=== PATIENT | female | born 1955 | race Caucasian/White ===

== ENCOUNTER 2019-01-04 11:57 | Inpatient (IN) | payer MEDICAID ==
[~2019-01-04] VITALS: Ht 170.2 cm; Wt 104.1 kg
[~2019-01-04 11:57] MED LIST: AMLO5TAB88 PO; AZIT500T5 PO; BENZ100C86 PO; NICO-681 TD; PRED15SO23 PO; PULM50 HHN; THEOL PO
[2019-01-04 12:40] LABS: BASOPHILS % 0.9 % (0.0-2.0); EOSINOPHILS % 3.2 % (0.0-5.0); HEMATOCRIT. 43.2 % (36.0-48.0); HEMOGLOBIN. 14.3 g/dL (12.0-16.0); MEAN CORPUSCULAR HEMOGLOBIN 29.4 pg (28.0-32.0); MEAN CORPUSCULAR VOLUME 89.2 fL (81.0-99.0); MONOCYTES % 6.7 % (2.0-8.0); NEUTROPHILS % 77.2 % (40.0-76.0); PLATELET 369 x1000/uL (130-400); RED BLOOD CELL COUNT 4.84 mill/uL (4.2-5.4); RED CELL DISTRIBUTION WIDTH 14.3 % (11.6-14.6)
[2019-01-04 12:47] LABS: CHLORIDE 99 mEq/L (98-107)
[2019-01-04] MEDS ORDERED: IPRATROPIUM BROMIDE (0.02%) 0.5MG/2.5ML NEB HHN STA (12:47)
[2019-01-04] MEDS ORDERED: METHYLPREDNISOLONE SOD SUCC 125 MG/2 ML VIAL IV STA (12:47)
[2019-01-04 12:49] LABS: PROTHROMBIN TIME 9.9 sec (9.1-11.1)
[2019-01-04] MEDS ORDERED: SODIUM CHLORIDE 0.9% 1,000 ML IV ONE (13:25)
[2019-01-04] MEDS: ALBUTEROL (0.083%) 2.5MG/3ML NEB HHN SCH ×3 (13:30→14:00)
[2019-01-04] MEDS ORDERED: ENOXAPARIN 40MG/0.4ML SYR SUBCUT SCH (16:15)
[2019-01-04] MEDS ORDERED: ONDANSETRON HCL 4MG/2ML INJ IV PRN (16:15)
[2019-01-04] MEDS ORDERED: MORPHINE SULFATE 4 MG/ML CPJ (NOT FOR IM USE) IV NR (17:00)
[2019-01-04 17:33] LABS: PHOSPHORUS 3.8 mg/dL (2.5-4.9)
[2019-01-04 17:50] LABS: CLARITY URINE CLEAR (CLEAR); COLOR URINE YELLOW (YELLOW); KETONES URINE NEGATIVE (NEGATIVE); LEUKOCYTE ESTERASE URINE TRACE (NEGATIVE); NITRITE URINE POSITIVE (NEGATIVE); OCCULT BLOOD URINE TRACE (NEGATIVE); PH URINE 5.5 (4.5-8.0); PROTEIN URINE NEGATIVE (NEGATIVE); SPECIFIC GRAVITY URINE 1.006 (1.005-1.030); UROBILINOGEN URINE 0.2 E.U./dL (0.2-1.0)
[2019-01-04 20:00] VITALS: BP 151/82
[2019-01-04 21:00] VITALS: BP 151/82
[2019-01-04] MEDS ORDERED: IPRATROPIUM/ALBUTEROL 0.5-3(2.5)MG/3ML NEB HHN PRN (21:19)
[2019-01-04] MEDS ORDERED: HYDROCODONE/ACETAMINOPHEN 5/325MG TABLET PO PRN (21:20)
[2019-01-04] MEDS ORDERED: ACETAMINOPHEN 325MG TABLET PO PRN (21:20)
[2019-01-04] MEDS ORDERED: DIPHENHYDRAMINE 50MG/ML VIAL IV PRN (21:21)
[2019-01-04] MEDS ORDERED: DOCUSATE SODIUM 100MG CAPSULE PO PRN (21:21)
[2019-01-04] MEDS ORDERED: MAGNESIUM/ALUMINUM HYDROXIDE/SIMETHICONE 30ML UDC PO PRN (21:21)
[2019-01-04] MEDS ORDERED: GUAIFENESIN 200MG/10ML SUGAR FREE UDC PO PRN (21:22)
[2019-01-04] MEDS: GUAIFENESIN 600MG ER TABLET PO SCH (23:44)
[2019-01-04] MEDS: METHYLPREDNISOLONE SOD SUCC 40 MG/ML VIAL IV SCH (23:44)
[2019-01-04] MEDS: NICOTINE 14MG PATCH TD SCH (23:45)
[2019-01-05] VITALS: BP 149/69
[2019-01-05] MEDS ORDERED: IPRATROPIUM/ALBUTEROL 0.5-3(2.5)MG/3ML NEB HHN SCH
[2019-01-05 01:24] LABS: CREATINE KINASE 59 IU/L (26-192)
[2019-01-05 01:25] LABS: CREATINE KINASE MB FRACTION < 1.0 ng/mL (0.5-3.6)
[2019-01-05 04:00] VITALS: BP 163/82
[2019-01-05 06:48] LABS: BASOPHILS % 0.8 % (0.0-2.0); EOSINOPHILS % 0.1 % (0.0-5.0); HEMATOCRIT. 40.3 % (36.0-48.0); HEMOGLOBIN. 13.4 g/dL (12.0-16.0); LYMPHOCYTES % 7.1 % (20.0-50.0); MEAN CORPUSCULAR HEMOGLOBIN 29.6 pg (28.0-32.0); MEAN CORPUSCULAR VOLUME 88.7 fL (81.0-99.0); MEAN PLATELET VOLUME 7.3 fl (7.4-10.4); MONOCYTES % 4.7 % (2.0-8.0); NEUTROPHILS % 87.3 % (40.0-76.0); PLATELET 356 x1000/uL (130-400); RED BLOOD CELL COUNT 4.55 mill/uL (4.2-5.4); RED CELL DISTRIBUTION WIDTH 14.5 % (11.6-14.6)
[2019-01-05] MEDS: METHYLPREDNISOLONE SOD SUCC 40 MG/ML VIAL IV SCH ×3 (06:50→20:58)
[2019-01-05 07:26] LABS: CHLORIDE 107 mEq/L (98-107)
[2019-01-05] MEDS ORDERED: DEXTROSE 50% WATER 50ML SYRINGE IV PRN (07:30)
[2019-01-05 07:48] LABS: LDL CHOLESTEROL 133 mg/dL (5-100)
[2019-01-05 07:49] LABS: CREATINE KINASE 54 IU/L (26-192); HDL CHOLESTEROL 79 mg/dL (40-59)
[2019-01-05] MEDS: INSULIN LISPRO 100 UNITS/ML SUBCUT SCH ×4 (07:50→20:50)
[2019-01-05] MEDS: BLOOD SUGAR DIAGNOSTIC STRIP TEST SCH ×4 (07:51→20:50)
[2019-01-05 07:53] LABS: CREATINE KINASE MB FRACTION 1.1 ng/mL (0.5-3.6)
[2019-01-05 08:00] VITALS: BP_SYST 150; BP_SYST 182; BP_DIAS 80; BP_DIAS 85
[2019-01-05] MEDS: GUAIFENESIN 600MG ER TABLET PO SCH ×2 (08:06→20:49)
[2019-01-05] MEDS: CLONIDINE 0.1MG TABLET PO PRN ×2 (08:07→23:27)
[2019-01-05] MEDS: NICOTINE 14MG PATCH TD SCH (08:08)
[2019-01-05] MEDS: ENOXAPARIN 30MG/0.3ML SYR SUBCUT SCH ×2 (08:09→20:49)
[2019-01-05 12:00] VITALS: BP 150/85
[2019-01-05 16:00] VITALS: BP 146/68
[2019-01-05 20:00] VITALS: BP 179/86
[2019-01-05] MEDS: AMLODIPINE 5MG TABLET PO SCH (20:49)
[2019-01-05] MEDS ORDERED: ATORVASTATIN CALCIUM 20MG TABLET PO SCH (21:00)
[2019-01-05] MEDS: IPRATROPIUM/ALBUTEROL 0.5-3(2.5)MG/3ML NEB HHN SCH (21:25)
[2019-01-06] VITALS (7 sets, daily range): BP systolic 149–182; BP diastolic 73–87
[2019-01-06] MEDS: IPRATROPIUM/ALBUTEROL 0.5-3(2.5)MG/3ML NEB HHN SCH ×3 (00:38→12:53)
[2019-01-06] MEDS: METHYLPREDNISOLONE SOD SUCC 40 MG/ML VIAL IV SCH ×2 (06:24→13:17)
[2019-01-06] MEDS: BLOOD SUGAR DIAGNOSTIC STRIP TEST SCH ×2 (06:24→13:09)
[2019-01-06] MEDS: CLONIDINE 0.1MG TABLET PO PRN (06:24)
[2019-01-06] MEDS: INSULIN LISPRO 100 UNITS/ML SUBCUT SCH ×2 (07:50→13:21)
[2019-01-06] MEDS: NICOTINE 14MG PATCH TD SCH (08:48)
[2019-01-06] MEDS: ENOXAPARIN 30MG/0.3ML SYR SUBCUT SCH (08:48)
[2019-01-06] MEDS: AMLODIPINE 5MG TABLET PO SCH (08:48)
[2019-01-06] MEDS: GUAIFENESIN 600MG ER TABLET PO SCH (08:48)
== END 2019-01-06 15:29 | disposition home or self-care (01) | DRG 140 ==
LOC: ER 11:57 → 6WST 14:42 → ENRESERV 18:26
PROVIDERS: ADMIT Internal Medicine; ATTEND Internal Medicine
DX: J44.1 Chronic obstructive pulmonary disease with (acute) exacerbation (principal); J96.00 Acute respiratory failure, unspecified whether with hypoxia or hypercapnia; I25.10 Atherosclerotic heart disease of native coronary artery without angina pectoris; J06.9 Acute upper respiratory infection, unspecified; I50.32 Chronic diastolic (congestive) heart failure; I11.0 Hypertensive heart disease with heart failure; F17.210 Nicotine dependence, cigarettes, uncomplicated; E87.2 Acidosis; R73.9 Hyperglycemia, unspecified; M16.11 Unilateral primary osteoarthritis, right hip; R74.0 Nonspecific elevation of levels of transaminase and lactic acid dehydrogenase [LDH]; E78.5 Hyperlipidemia, unspecified; E66.9 Obesity, unspecified; Z71.3 Dietary counseling and surveillance; I25.2 Old myocardial infarction; Z95.5 Presence of coronary angioplasty implant and graft; Z90.49 Acquired absence of other specified parts of digestive tract; Z68.35 Body mass index [BMI] 35.0-35.9, adult; Z79.899 Other long term (current) drug therapy; Z71.6 Tobacco abuse counseling
CPT/HCPCS: 36415; 71045; 80061; 82550; 82553; 82962; 83605; 83735; 83880; 84100; 84443; 84484; 87804; 93005; 93970; 94640; 97162; 97166; 99285; J1200; J1650; J1815; J2270; J2920; J2930; J7030; J7611; J7620

== ENCOUNTER 2019-01-16 09:16 | Emergency (ER) | payer MEDICAID ==
[~2019-01-16] VITALS: Ht 162.6 cm; Wt 97.0 kg
[~2019-01-16 09:16] MED LIST changes: -AZIT500T5 PO; -BENZ100C86 PO; -NICO-681 TD
[2019-01-16] MEDS ORDERED: MORPHINE SULFATE 4 MG/ML CPJ (NOT FOR IM USE) IV STA (10:37)
[2019-01-16] MEDS ORDERED: ONDANSETRON HCL 4MG/2ML INJ IV STA (10:37)
[2019-01-16 10:57] LABS: BASOPHILS % 0.8 % (0.0-2.0); EOSINOPHILS % 4.6 % (0.0-5.0); HEMATOCRIT. 41.8 % (36.0-48.0); HEMOGLOBIN. 13.9 g/dL (12.0-16.0); LYMPHOCYTES % 10.7 % (20.0-50.0); MEAN CORPUSCULAR HEMOGLOBIN 29.6 pg (28.0-32.0); MEAN CORPUSCULAR VOLUME 89.4 fL (81.0-99.0); MEAN PLATELET VOLUME 7.3 fl (7.4-10.4); MONOCYTES % 6.5 % (2.0-8.0); NEUTROPHILS % 77.4 % (40.0-76.0); PLATELET 362 x1000/uL (130-400); RED BLOOD CELL COUNT 4.67 mill/uL (4.2-5.4); RED CELL DISTRIBUTION WIDTH 14.7 % (11.6-14.6)
[2019-01-16 11:00] LABS: INR 0.9; PROTHROMBIN TIME 9.5 sec (9.1-11.1)
[2019-01-16 11:02] LABS: CHLORIDE 104 mEq/L (98-107)
[2019-01-16] MEDS ORDERED: HYDROCODONE/ACETAMINOPHEN 5/325MG TABLET PO ONE (12:00)
[2019-01-16 14:00] VITALS: BP 145/56
== END 2019-01-16 14:15 | disposition home or self-care (01) ==
LOC: ER 09:16 → EDBEDREQ 11:07 → CANBEDREQ 12:37 → ER 14:15
DX: S70.01XA Contusion of right hip, initial encounter (principal); I10 Essential (primary) hypertension; I25.2 Old myocardial infarction; J44.9 Chronic obstructive pulmonary disease, unspecified; M19.90 Unspecified osteoarthritis, unspecified site; I25.10 Atherosclerotic heart disease of native coronary artery without angina pectoris; Z90.49 Acquired absence of other specified parts of digestive tract; Z98.890 Other specified postprocedural states; Z79.899 Other long term (current) drug therapy; W01.0XXA Fall on same level from slipping, tripping and stumbling without subsequent striking against object, initial encounter; Y93.89 Activity, other specified; Y92.89 Other specified places as the place of occurrence of the external cause; Y99.8 Other external cause status
CPT/HCPCS: 36415; 71045; 72100; 73502; 80053; 85025; 85610; 93005; 96374; 96375; 99284; J2270; J2405

== ENCOUNTER 2019-06-24 18:23 | Emergency (ER) | payer BC, OTHER ==
[~2019-06-24] VITALS: Ht 172.7 cm; Wt 100.0 kg
[2019-06-24] MEDS ORDERED: KETOROLAC 60MG/2ML VIAL IM ONE (20:00)
[2019-06-24] MEDS ORDERED: HYDROCODONE/ACETAMINOPHEN 5/325MG TABLET PO ONE (20:00)
[2019-06-24] MEDS ORDERED: CLONIDINE 0.2MG TABLET PO ONE (22:45)
[2019-06-24 23:41] LABS: BASOPHILS % 1.5 % (0.0-2.0); EOSINOPHILS % 4.5 % (0.0-5.0); HEMATOCRIT. 41.9 % (36.0-48.0); HEMOGLOBIN. 14.3 g/dL (12.0-16.0); LYMPHOCYTES % 18.5 % (20.0-50.0); MEAN CORPUSCULAR HEMOGLOBIN 29.8 pg (28.0-32.0); MEAN CORPUSCULAR VOLUME 87.4 fL (81.0-99.0); MEAN PLATELET VOLUME 7.3 fl (7.4-10.4); MONOCYTES % 6.1 % (2.0-8.0); NEUTROPHILS % 69.4 % (40.0-76.0); PLATELET 299 x1000/uL (130-400); RED CELL DISTRIBUTION WIDTH 14.3 % (11.6-14.6)
[2019-06-24 23:47] LABS: CHLORIDE 107 mEq/L (98-107)
[2019-06-25] MEDS ORDERED: LABETALOL 5MG/ML SYR 20 MG/4 ML SYRINGE IV SCH (01:40)
[2019-06-25] MEDS ORDERED: ONDANSETRON HCL 4MG/2ML INJ IV STA (02:56)
[2019-06-25 08:07] VITALS: BP 132/60
== END 2019-06-25 08:25 | disposition short-term general hospital (02) ==
LOC: ER 18:23
DX: M79.604 Pain in right leg (principal); G89.29 Other chronic pain; I10 Essential (primary) hypertension; M19.90 Unspecified osteoarthritis, unspecified site; R41.0 Disorientation, unspecified; I25.10 Atherosclerotic heart disease of native coronary artery without angina pectoris; F32.9 Major depressive disorder, single episode, unspecified; J44.9 Chronic obstructive pulmonary disease, unspecified; I25.2 Old myocardial infarction; Z90.49 Acquired absence of other specified parts of digestive tract
CPT/HCPCS: 36415; 70450; 71045; 80053; 83880; 84484; 85025; 93005; 96372; 96374; 96375; 99285; J1885; J2405; J3490

== ENCOUNTER 2020-12-03 12:15 | Inpatient (IN) | payer OTHER, MEDICAID ==
[~2020-12-03] VITALS: Ht 167.6 cm; Wt 110.2 kg
[2020-12-03] MEDS ORDERED: ONDANSETRON HCL 4MG/2ML INJ IV STA (12:41)
[2020-12-03] MEDS ORDERED: SODIUM CHLORIDE 0.9% 1,000 ML IV ONE (12:45)
[2020-12-03 13:14] LABS: BASOPHILS % 1.4 % (0.0-2.0); EOSINOPHILS % 1.5 % (0.0-5.0); HEMATOCRIT. 41.4 % (36.0-48.0); HEMOGLOBIN. 14.1 g/dL (12.0-16.0); LYMPHOCYTES % 9.8 % (20.0-50.0); MEAN CORPUSCULAR HEMOGLOBIN 29.6 pg (28.0-32.0); MEAN CORPUSCULAR VOLUME 86.9 fL (81.0-99.0); MEAN PLATELET VOLUME 7.5 fl (7.4-10.4); MONOCYTES % 5.4 % (2.0-8.0); NEUTROPHILS % 81.9 % (40.0-76.0); PLATELET 436 x1000/uL (130-400); RED BLOOD CELL COUNT 4.77 mill/uL (4.2-5.4); RED CELL DISTRIBUTION WIDTH 14.7 % (11.6-14.6)
[2020-12-03 13:22] LABS: CHLORIDE 90 mEq/L (98-107)
[2020-12-03 13:28] LABS: ETHANOL BLOOD < 10 mg/dL
[2020-12-03 13:32] LABS: CLARITY URINE CLOUDY (CLEAR); COLOR URINE YELLOW (YELLOW); KETONES URINE NEGATIVE (NEGATIVE); LEUKOCYTE ESTERASE URINE 2+ (NEGATIVE); NITRITE URINE POSITIVE (NEGATIVE); OCCULT BLOOD URINE NEGATIVE (NEGATIVE); PH URINE 5.5 (4.5-8.0); PROTEIN URINE NEGATIVE (NEGATIVE); SPECIFIC GRAVITY URINE 1.009 (1.005-1.030); UROBILINOGEN URINE 0.2 E.U./dL (0.2-1.0)
[2020-12-03] MEDS ORDERED: FUROSEMIDE 100MG/10ML VIAL IV STA (13:54)
[2020-12-03 13:56] LABS: *AMPHETAMINES SCREEN URINE NEGATIVE (NEGATIVE); *BARBITURATES SCREEN URINE NEGATIVE (NEGATIVE); *BENZODIAZEPINES SCREEN URINE NEGATIVE (NEGATIVE); *COCAINE SCREEN URINE NEGATIVE (NEGATIVE)
[2020-12-03 13:57] LABS: CANNABINOID URINE SCREEN NEGATIVE (NEGATIVE); METHADONE URINE SCREEN NEGATIVE (NEGATIVE); OPIATES URINE SCREEN NEGATIVE (NEGATIVE); PHENCYCLIDINE URINE SCREEN NEGATIVE (NEGATIVE)
[2020-12-03] MEDS ORDERED: ALBUTEROL (0.083%) 2.5MG/3ML NEB HHN ONE (14:00)
[2020-12-03] MEDS ORDERED: DEXTROSE 50% WATER 50ML SYRINGE IV ONE (14:00)
[2020-12-03] MEDS ORDERED: CEFTRIAXONE 1 G PREMIX 50 ML IV ONE (14:00)
[2020-12-03] MEDS ORDERED: SODIUM POLYSTYRENE SULFONATE 15 G/60 ML BOT PO ONE (14:00)
[2020-12-03] MEDS ORDERED: CALCIUM CHLORIDE 1GM/10ML SYR IV ONE (14:00)
[2020-12-03] MEDS ORDERED: SODIUM BICARBONATE 8.4% 1 MEQ/ML 50ML SYR IV ONE (14:00)
[2020-12-03] MEDS ORDERED: INSULIN REGULAR (HUMULIN R) 300UNITS/3ML VIAL IV ONE (14:00)
[2020-12-03] MEDS ORDERED: SODIUM CHLORIDE 0.9% 1000ML BAG (SEPSIS BOLUS) IV ONE (14:00)
[2020-12-03 14:40] LABS: PROTHROMBIN TIME 10.9 sec (9.6-11.0)
[2020-12-03] MEDS ORDERED: ONDANSETRON HCL 4MG/2ML INJ IV PRN (16:15)
[2020-12-03] MEDS: SODIUM CHLORIDE 0.9% 1,000 ML IV SCH (17:38)
[2020-12-03] MEDS: ENOXAPARIN 40MG/0.4ML SYR SUBCUT SCH (17:38)
[2020-12-04] MEDS: SODIUM CHLORIDE 0.9% 1,000 ML IV SCH ×2 (05:30→17:47)
[2020-12-04 08:00] VITALS: BP 101/53
[2020-12-04 08:33] LABS: EOSINOPHILS % 0.9 % (0.0-5.0); HEMATOCRIT. 37.6 % (36.0-48.0); HEMOGLOBIN. 12.5 g/dL (12.0-16.0); MEAN CORPUSCULAR HEMOGLOBIN 29.6 pg (28.0-32.0); MEAN CORPUSCULAR VOLUME 88.9 fL (81.0-99.0); MEAN PLATELET VOLUME 7.1 fl (7.4-10.4); MONOCYTES % 7.2 % (2.0-8.0); NEUTROPHILS % 82.9 % (40.0-76.0); PLATELET 286 x1000/uL (130-400); RED BLOOD CELL COUNT 4.22 mill/uL (4.2-5.4); RED CELL DISTRIBUTION WIDTH 14.7 % (11.6-14.6)
[2020-12-04 09:00] LABS: CHLORIDE 102 mEq/L (98-107)
[2020-12-04] MEDS: LACTOBACILLUS GG CAPSULE PO SCH (09:11)
[2020-12-04] MEDS: ENOXAPARIN 40MG/0.4ML SYR SUBCUT SCH (09:12)
[2020-12-04 09:15] LABS: HDL CHOLESTEROL 55 mg/dL (40-59); LDL CHOLESTEROL 102 mg/dL (5-100)
[2020-12-04 12:00] VITALS: BP 102/56
[2020-12-04] MEDS ORDERED: CEFTRIAXONE 1 G PREMIX 50 ML IV SCH (12:00)
[2020-12-04] MEDS: CEFTRIAXONE 1,000 MG in DEXTROSE 5% WATER 50 ML IV SCH (13:08)
[2020-12-04] MEDS ORDERED: LOPERAMIDE HCL 2MG CAPSULE PO NR (15:00)
[2020-12-04 16:00] VITALS: BP 135/63
[2020-12-04] MEDS ORDERED: LOPERAMIDE HCL 2MG CAPSULE PO PRN (18:00)
[2020-12-04 20:00] VITALS: BP 125/63
[2020-12-05 00:01] VITALS: BP 129/65
[2020-12-05 04:00] VITALS: BP 140/73
[2020-12-05] MEDS: SODIUM CHLORIDE 0.9% 1,000 ML IV SCH ×2 (07:14→22:06)
[2020-12-05 07:42] LABS: HEMATOCRIT. 33.6 % (36.0-48.0); HEMOGLOBIN. 11.4 g/dL (12.0-16.0); MEAN CORPUSCULAR HEMOGLOBIN 29.8 pg (28.0-32.0); MEAN CORPUSCULAR VOLUME 88.2 fL (81.0-99.0); MEAN PLATELET VOLUME 6.9 fl (7.4-10.4); PLATELET 280 x1000/uL (130-400); RED BLOOD CELL COUNT 3.81 mill/uL (4.2-5.4); RED CELL DISTRIBUTION WIDTH 14.8 % (11.6-14.6)
[2020-12-05 07:54] LABS: CHLORIDE 104 mEq/L (98-107)
[2020-12-05 08:00] VITALS: BP 132/71
[2020-12-05] MEDS: LACTOBACILLUS GG CAPSULE PO SCH (10:28)
[2020-12-05] MEDS: ENOXAPARIN 40MG/0.4ML SYR SUBCUT SCH (10:29)
[2020-12-05] MEDS ORDERED: ATOR10TA69 MT (13:09)
[2020-12-05] MEDS ORDERED: BENZ-16 MT (13:09)
[2020-12-05] MEDS ORDERED: IMOD PO (13:09)
[2020-12-05] MEDS ORDERED: BENZONATATE 100MG CAPSULE PO PRN (13:15)
[2020-12-05] MEDS: ACETAMINOPHEN 325MG TABLET PO PRN (13:23)
[2020-12-05 14:00] VITALS: BP 151/63
[2020-12-05] MEDS: CEFTRIAXONE 1,000 MG in DEXTROSE 5% WATER 50 ML IV SCH (14:10)
[2020-12-05] MEDS: IPRATROPIUM/ALBUTEROL 0.5-3(2.5)MG/3ML NEB HHN SCH ×2 (15:20→22:17)
[2020-12-05 20:00] VITALS: BP 124/68
[2020-12-06] VITALS: BP 146/68
[2020-12-06] MEDS: IPRATROPIUM/ALBUTEROL 0.5-3(2.5)MG/3ML NEB HHN SCH ×5 (03:26→20:54)
[2020-12-06 04:00] VITALS: BP 150/70
[2020-12-06 08:00] VITALS: BP 157/77
[2020-12-06] MEDS: ASPIRIN 81MG EC TABLET PO SCH (08:42)
[2020-12-06] MEDS: LACTOBACILLUS GG CAPSULE PO SCH (08:42)
[2020-12-06] MEDS: ENOXAPARIN 30MG/0.3ML SYR SUBCUT SCH ×2 (08:42→16:39)
[2020-12-06] MEDS: SODIUM CHLORIDE 0.9% 1,000 ML IV SCH ×2 (08:51→20:00)
[2020-12-06] MEDS: AMLODIPINE 5MG TABLET PO SCH (08:51)
[2020-12-06 12:00] VITALS: BP 148/85
[2020-12-06] MEDS: ACETAMINOPHEN 325MG TABLET PO PRN (12:19)
[2020-12-06] MEDS: CEFTRIAXONE 1,000 MG in DEXTROSE 5% WATER 50 ML IV SCH (12:20)
[2020-12-06 16:00] VITALS: BP 146/77
[2020-12-06 20:00] VITALS: BP 169/100
[2020-12-06] MEDS: ATORVASTATIN CALCIUM 20MG TABLET PO SCH (20:14)
[2020-12-06 22:41] LABS: PLATELET ESTIMATE NORMAL
[2020-12-07] VITALS: BP 170/79
[2020-12-07] MEDS: IPRATROPIUM/ALBUTEROL 0.5-3(2.5)MG/3ML NEB HHN SCH (01:48)
[2020-12-07] MEDS: DIPHENHYDRAMINE 50MG/ML VIAL IV PRN (02:02)
[2020-12-07] MEDS: CLONIDINE 0.1MG TABLET PO PRN ×2 (02:02→12:34)
[2020-12-07 04:00] VITALS: BP 165/82
[2020-12-07 07:01] LABS: CHLORIDE 99 mEq/L (98-107)
[2020-12-07 07:18] LABS: HEMATOCRIT. 35.1 % (36.0-48.0); HEMOGLOBIN. 11.9 g/dL (12.0-16.0); MEAN CORPUSCULAR HEMOGLOBIN 30.1 pg (28.0-32.0); MEAN PLATELET VOLUME 7.6 fl (7.4-10.4); PLATELET 306 x1000/uL (130-400); RED BLOOD CELL COUNT 3.95 mill/uL (4.2-5.4); RED CELL DISTRIBUTION WIDTH 14.9 % (11.6-14.6)
[2020-12-07 08:00] VITALS: BP 155/84
[2020-12-07] MEDS: ENOXAPARIN 30MG/0.3ML SYR SUBCUT SCH ×2 (08:22→16:36)
[2020-12-07] MEDS: AMLODIPINE 5MG TABLET PO SCH (08:22)
[2020-12-07] MEDS: SODIUM CHLORIDE 0.9% 1,000 ML IV SCH ×2 (08:22→20:21)
[2020-12-07] MEDS: LACTOBACILLUS GG CAPSULE PO SCH (08:22)
[2020-12-07] MEDS: ACETAMINOPHEN 325MG TABLET PO PRN ×2 (08:22→18:20)
[2020-12-07] MEDS: ASPIRIN 81MG EC TABLET PO SCH (08:23)
[2020-12-07] MEDS: METOPROLOL TARTRATE 25MG TABLET PO SCH ×2 (08:23→20:21)
[2020-12-07 12:00] VITALS: BP 164/77
[2020-12-07] MEDS: CEFTRIAXONE 1,000 MG in DEXTROSE 5% WATER 50 ML IV SCH (12:29)
[2020-12-07 15:17] LABS: PLATELET ESTIMATE NORMAL
[2020-12-07 16:00] VITALS: BP 153/61
[2020-12-07] MEDS ORDERED: HYDROCODONE/ACETAMINOPHEN 5/325MG TABLET PO PRN (19:30)
[2020-12-07 20:00] VITALS: BP 133/64
[2020-12-07] MEDS: ATORVASTATIN CALCIUM 20MG TABLET PO SCH (20:21)
[2020-12-08] VITALS: BP 139/63
[2020-12-08 04:00] VITALS: BP 156/67
[2020-12-08 07:27] LABS: BASOPHILS % 1.1 % (0.0-2.0); EOSINOPHILS % 4.9 % (0.0-5.0); HEMATOCRIT. 32.2 % (36.0-48.0); HEMOGLOBIN. 10.9 g/dL (12.0-16.0); LYMPHOCYTES % 11.4 % (20.0-50.0); MEAN CORPUSCULAR HEMOGLOBIN 29.5 pg (28.0-32.0); MEAN CORPUSCULAR VOLUME 87.5 fL (81.0-99.0); MEAN PLATELET VOLUME 6.9 fl (7.4-10.4); MONOCYTES % 8.8 % (2.0-8.0); NEUTROPHILS % 73.8 % (40.0-76.0); PLATELET 339 x1000/uL (130-400); RED BLOOD CELL COUNT 3.68 mill/uL (4.2-5.4); RED CELL DISTRIBUTION WIDTH 14.5 % (11.6-14.6)
[2020-12-08 08:00] VITALS: BP 146/66
[2020-12-08 08:15] LABS: CHLORIDE 102 mEq/L (98-107)
[2020-12-08] MEDS: IPRATROPIUM/ALBUTEROL 0.5-3(2.5)MG/3ML NEB HHN SCH ×4 (08:52→21:19)
[2020-12-08] MEDS: ASPIRIN 81MG EC TABLET PO SCH (08:55)
[2020-12-08] MEDS: LACTOBACILLUS GG CAPSULE PO SCH (08:55)
[2020-12-08] MEDS: METOPROLOL TARTRATE 25MG TABLET PO SCH ×2 (08:55→21:05)
[2020-12-08] MEDS: ENOXAPARIN 30MG/0.3ML SYR SUBCUT SCH ×2 (08:55→18:16)
[2020-12-08] MEDS: SODIUM CHLORIDE 0.9% 1,000 ML IV SCH ×2 (08:56→21:06)
[2020-12-08] MEDS: AMLODIPINE 5MG TABLET PO SCH (09:35)
[2020-12-08 14:00] VITALS: BP 147/65
[2020-12-08 16:00] VITALS: BP 126/59
[2020-12-08 20:00] VITALS: BP 115/62
[2020-12-08] MEDS: ATORVASTATIN CALCIUM 20MG TABLET PO SCH (21:05)
[2020-12-09] VITALS: BP 122/80
[2020-12-09 08:00] VITALS: BP 154/67
[2020-12-09] MEDS: IPRATROPIUM/ALBUTEROL 0.5-3(2.5)MG/3ML NEB HHN SCH ×3 (08:11→21:19)
[2020-12-09 09:28] LABS: BASOPHILS % 1.3 % (0.0-2.0); EOSINOPHILS % 5.1 % (0.0-5.0); HEMATOCRIT. 34.3 % (36.0-48.0); HEMOGLOBIN. 11.5 g/dL (12.0-16.0); LYMPHOCYTES % 13.7 % (20.0-50.0); MEAN CORPUSCULAR HEMOGLOBIN 29.6 pg (28.0-32.0); MEAN CORPUSCULAR VOLUME 88.3 fL (81.0-99.0); MEAN PLATELET VOLUME 6.9 fl (7.4-10.4); MONOCYTES % 8.3 % (2.0-8.0); NEUTROPHILS % 71.6 % (40.0-76.0); PLATELET 376 x1000/uL (130-400); RED BLOOD CELL COUNT 3.88 mill/uL (4.2-5.4); RED CELL DISTRIBUTION WIDTH 14.7 % (11.6-14.6)
[2020-12-09] MEDS: METOPROLOL TARTRATE 25MG TABLET PO SCH ×2 (09:40→20:29)
[2020-12-09] MEDS: AMLODIPINE 5MG TABLET PO SCH (09:40)
[2020-12-09] MEDS: ASPIRIN 81MG EC TABLET PO SCH (09:40)
[2020-12-09] MEDS: LACTOBACILLUS GG CAPSULE PO SCH (09:41)
[2020-12-09] MEDS: ENOXAPARIN 30MG/0.3ML SYR SUBCUT SCH ×2 (09:41→16:24)
[2020-12-09] MEDS: SODIUM CHLORIDE 0.9% 1,000 ML IV SCH ×2 (09:41→23:35)
[2020-12-09 09:49] LABS: CHLORIDE 103 mEq/L (98-107)
[2020-12-09 12:00] VITALS: BP 138/60
[2020-12-09 16:00] VITALS: BP 124/97
[2020-12-09 20:00] VITALS: BP 120/53
[2020-12-09] MEDS: ATORVASTATIN CALCIUM 20MG TABLET PO SCH (20:29)
[2020-12-10] VITALS: BP 114/70
[2020-12-10] MEDS: IPRATROPIUM/ALBUTEROL 0.5-3(2.5)MG/3ML NEB HHN SCH ×4 (02:37→22:27)
[2020-12-10 04:00] VITALS: BP 123/55
[2020-12-10 08:00] VITALS: BP 149/80
[2020-12-10] MEDS: ASPIRIN 81MG EC TABLET PO SCH (09:11)
[2020-12-10] MEDS: LACTOBACILLUS GG CAPSULE PO SCH (09:11)
[2020-12-10] MEDS: ENOXAPARIN 30MG/0.3ML SYR SUBCUT SCH (09:11)
[2020-12-10] MEDS: AMLODIPINE 5MG TABLET PO SCH (09:12)
[2020-12-10] MEDS: METOPROLOL TARTRATE 25MG TABLET PO SCH ×2 (09:12→20:56)
[2020-12-10 12:00] VITALS: BP 150/76
[2020-12-10 16:00] VITALS: BP 163/71
[2020-12-10] MEDS: DEXAMETHASONE 4MG/ML 1ML VIAL IV SCH (17:33)
[2020-12-10] MEDS: CLONIDINE 0.1MG TABLET PO PRN (17:33)
[2020-12-10] MEDS: SODIUM CHLORIDE 0.9% 1,000 ML IV SCH (17:38)
[2020-12-10 20:00] VITALS: BP 123/63
[2020-12-10] MEDS: ATORVASTATIN CALCIUM 20MG TABLET PO SCH (20:56)
[2020-12-11] VITALS (26 sets, daily range): BP systolic 110–148; BP diastolic 53–76
[2020-12-11] MEDS: SODIUM CHLORIDE 0.9% 1,000 ML IV SCH
[2020-12-11] MEDS: DEXAMETHASONE 4MG/ML 1ML VIAL IV SCH ×4 (00:22→23:11)
[2020-12-11] MEDS: IPRATROPIUM/ALBUTEROL 0.5-3(2.5)MG/3ML NEB HHN SCH ×5 (04:12→21:05)
[2020-12-11 07:40] LABS: HEMATOCRIT. 35.3 % (36.0-48.0); HEMOGLOBIN. 11.9 g/dL (12.0-16.0); MEAN CORPUSCULAR HEMOGLOBIN 29.5 pg (28.0-32.0); MEAN CORPUSCULAR VOLUME 87.6 fL (81.0-99.0); MEAN PLATELET VOLUME 6.8 fl (7.4-10.4); PLATELET 432 x1000/uL (130-400); RED BLOOD CELL COUNT 4.03 mill/uL (4.2-5.4); RED CELL DISTRIBUTION WIDTH 14.7 % (11.6-14.6)
[2020-12-11 07:52] LABS: CHLORIDE 105 mEq/L (98-107)
[2020-12-11] MEDS: METOPROLOL TARTRATE 25MG TABLET PO SCH ×2 (09:00→20:56)
[2020-12-11] MEDS: AMLODIPINE 5MG TABLET PO SCH (09:00)
[2020-12-11] MEDS: LACTOBACILLUS GG CAPSULE PO SCH (09:00)
[2020-12-11] MEDS ORDERED: SODIUM CHLORIDE 0.9% IRRIG SOL 3,000 ML IR ONE (10:26)
[2020-12-11] MEDS ORDERED: BACITRACIN 15GM TUBE TOP ONE (10:26)
[2020-12-11] MEDS ORDERED: THROMBIN (BOVINE) 5000 UNITS/VIAL TOP ONE (10:26)
[2020-12-11] MEDS ORDERED: SODIUM CHLORIDE 0.9% INJ 10ML FLUSH IVF ONE (10:26)
[2020-12-11] MEDS ORDERED: BACITRACIN 50,000 UNITS/VIAL ONE (10:26)
[2020-12-11] MEDS ORDERED: ROCURONIUM BROMIDE 10MG/ML VIAL 5ML IV ONE (12:39)
[2020-12-11] MEDS ORDERED: DEXAMETHASONE 4MG/ML 1ML VIAL ONE (12:40)
[2020-12-11] MEDS ORDERED: CEFAZOLIN SODIUM 1000MG/VIAL ONE (13:52)
[2020-12-11] MEDS ORDERED: HYDROMORPHONE HCL/PF 2MG/ML (OR) ONE (13:56)
[2020-12-11] MEDS ORDERED: HYDRALAZINE 20MG/ML VIAL ONE ×2 (13:58→15:35)
[2020-12-11] MEDS ORDERED: METOPROLOL TARTRATE 5MG/5ML VIAL IV ONE (13:58)
[2020-12-11] MEDS ORDERED: ALBUMIN HUMAN 25GM/100ML (25%) IV ONE (14:28)
[2020-12-11] MEDS ORDERED: HYDROMORPHONE HCL/PF 2MG/ML CPJ IV PRN (15:45)
[2020-12-11] MEDS ORDERED: MEPERIDINE HCL/PF 25MG/ML CPJ IV PRN (15:45)
[2020-12-11] MEDS ORDERED: LABETALOL 5MG/ML SYR 20 MG/4 ML SYRINGE IV PRN (15:45)
[2020-12-11] MEDS ORDERED: ONDANSETRON HCL 4MG/2ML INJ IV PRN (15:45)
[2020-12-11] MEDS: DEXT 5%/LACTATED RINGERS 1,000 ML IV SCH (18:33)
[2020-12-11 20:20] LABS: PLATELET ESTIMATE INCREASED
[2020-12-11] MEDS: NICARDIPINE 100 MG in SODIUM CHLORIDE 0.9% 60 ML IV PRN (20:55)
[2020-12-11] MEDS: ATORVASTATIN CALCIUM 20MG TABLET PO SCH (20:55)
[2020-12-11] MEDS: CEFAZOLIN 1000MG PREMIX 50 ML IV SCH (21:48)
[2020-12-11] MEDS ORDERED: CEFAZOLIN SODIUM 1000MG/VIAL IV SCH (22:00)
[2020-12-11] MEDS ORDERED: CEFEPIME 1GM PREMIX 50 ML IV SCH (22:00)
[2020-12-11] MEDS: MORPHINE SULFATE 4 MG/ML CPJ (NOT FOR IM USE) IV PRN (23:24)
[2020-12-12] VITALS (62 sets, daily range): BP systolic 102–149; BP diastolic 47–75
[2020-12-12] MEDS: IPRATROPIUM/ALBUTEROL 0.5-3(2.5)MG/3ML NEB HHN SCH ×4 (01:40→21:16)
[2020-12-12] MEDS: MORPHINE SULFATE 4 MG/ML CPJ (NOT FOR IM USE) IV PRN ×4 (01:50→16:28)
[2020-12-12] MEDS: NICARDIPINE 100 MG in SODIUM CHLORIDE 0.9% 60 ML IV PRN (02:01)
[2020-12-12] MEDS: DEXT 5%/LACTATED RINGERS 1,000 ML IV SCH ×3 (04:10→16:00)
[2020-12-12] MEDS: CEFAZOLIN 1000MG PREMIX 50 ML IV SCH ×3 (05:22→21:21)
[2020-12-12] MEDS: DEXAMETHASONE 4MG/ML 1ML VIAL IV SCH ×2 (05:22→11:41)
[2020-12-12 06:44] LABS: HEMATOCRIT. 33.1 % (36.0-48.0); HEMOGLOBIN. 11.1 g/dL (12.0-16.0); MEAN CORPUSCULAR HEMOGLOBIN 29.3 pg (28.0-32.0); MEAN CORPUSCULAR VOLUME 87.4 fL (81.0-99.0); MEAN PLATELET VOLUME 6.6 fl (7.4-10.4); PLATELET 485 x1000/uL (130-400); RED BLOOD CELL COUNT 3.79 mill/uL (4.2-5.4); RED CELL DISTRIBUTION WIDTH 14.6 % (11.6-14.6)
[2020-12-12 07:21] LABS: CHLORIDE 105 mEq/L (98-107)
[2020-12-12] MEDS: METOPROLOL TARTRATE 25MG TABLET PO SCH ×2 (10:26→21:06)
[2020-12-12] MEDS: LACTOBACILLUS GG CAPSULE PO SCH (10:26)
[2020-12-12] MEDS: AMLODIPINE 5MG TABLET PO SCH (10:27)
[2020-12-12 16:41] LABS: PLATELET ESTIMATE INCREASED
[2020-12-12] MEDS: GUAIFENESIN 600MG ER TABLET PO SCH (21:06)
[2020-12-12] MEDS: ATORVASTATIN CALCIUM 20MG TABLET PO SCH (21:06)
[2020-12-13] VITALS (35 sets, daily range): BP systolic 105–160; BP diastolic 36–92
[2020-12-13] MEDS: IPRATROPIUM/ALBUTEROL 0.5-3(2.5)MG/3ML NEB HHN SCH ×4 (00:10→20:36)
[2020-12-13] MEDS: MORPHINE SULFATE 4 MG/ML CPJ (NOT FOR IM USE) IV PRN ×3 (00:40→15:37)
[2020-12-13] MEDS: DEXT 5%/LACTATED RINGERS 1,000 ML IV SCH ×3 (05:51→17:27)
[2020-12-13] MEDS: CEFAZOLIN 1000MG PREMIX 50 ML IV SCH ×3 (05:51→21:19)
[2020-12-13 05:59] LABS: CHLORIDE 106 mEq/L (98-107)
[2020-12-13 06:31] LABS: HEMATOCRIT. 33.7 % (36.0-48.0); HEMOGLOBIN. 11.1 g/dL (12.0-16.0); MEAN CORPUSCULAR HEMOGLOBIN 29.4 pg (28.0-32.0); MEAN CORPUSCULAR VOLUME 89.5 fL (81.0-99.0); MEAN PLATELET VOLUME 6.8 fl (7.4-10.4); PLATELET 482 x1000/uL (130-400); RED BLOOD CELL COUNT 3.77 mill/uL (4.2-5.4)
[2020-12-13] MEDS: METOPROLOL TARTRATE 25MG TABLET PO SCH ×2 (08:59→21:13)
[2020-12-13] MEDS: LACTOBACILLUS GG CAPSULE PO SCH (08:59)
[2020-12-13] MEDS: GUAIFENESIN 600MG ER TABLET PO SCH ×2 (09:00→21:13)
[2020-12-13] MEDS: AMLODIPINE 5MG TABLET PO SCH (09:00)
[2020-12-13] MEDS: PANTOPRAZOLE 40MG DR TABLET PO SCH (11:55)
[2020-12-13] MEDS: CALCIUM CARBONATE 500MG TABLET CHEW PO SCH ×2 (13:24→17:25)
[2020-12-13 18:04] LABS: PLATELET ESTIMATE INCREASED
[2020-12-13] MEDS: ATORVASTATIN CALCIUM 20MG TABLET PO SCH (21:12)
[2020-12-14] VITALS: BP 152/64
[2020-12-14] MEDS: MORPHINE SULFATE 4 MG/ML CPJ (NOT FOR IM USE) IV PRN (00:51)
[2020-12-14] MEDS: CLONIDINE 0.1MG TABLET PO PRN (02:04)
[2020-12-14] MEDS: DEXT 5%/LACTATED RINGERS 1,000 ML IV SCH ×2 (03:47→13:11)
[2020-12-14 04:00] VITALS: BP 146/54
[2020-12-14] MEDS: IPRATROPIUM/ALBUTEROL 0.5-3(2.5)MG/3ML NEB HHN SCH ×4 (04:09→20:38)
[2020-12-14] MEDS: CEFAZOLIN 1000MG PREMIX 50 ML IV SCH ×3 (06:30→22:08)
[2020-12-14] MEDS: PANTOPRAZOLE 40MG DR TABLET PO SCH (06:30)
[2020-12-14 07:01] LABS: HEMATOCRIT. 31.9 % (36.0-48.0); HEMOGLOBIN. 10.4 g/dL (12.0-16.0); MEAN CORPUSCULAR HEMOGLOBIN 29.1 pg (28.0-32.0); MEAN CORPUSCULAR VOLUME 88.8 fL (81.0-99.0); MEAN PLATELET VOLUME 6.5 fl (7.4-10.4); PLATELET 396 x1000/uL (130-400); RED BLOOD CELL COUNT 3.59 mill/uL (4.2-5.4); RED CELL DISTRIBUTION WIDTH 14.8 % (11.6-14.6)
[2020-12-14 07:31] LABS: CHLORIDE 107 mEq/L (98-107)
[2020-12-14 08:00] VITALS: BP 140/68
[2020-12-14] MEDS: GUAIFENESIN 600MG ER TABLET PO SCH ×2 (08:46→22:08)
[2020-12-14] MEDS: CALCIUM CARBONATE 500MG TABLET CHEW PO SCH ×3 (08:46→17:35)
[2020-12-14] MEDS: AMLODIPINE 10MG TABLET PO SCH (08:48)
[2020-12-14] MEDS: METOPROLOL TARTRATE 25MG TABLET PO SCH ×2 (08:48→22:08)
[2020-12-14] MEDS: LACTOBACILLUS GG CAPSULE PO SCH (09:00)
[2020-12-14 12:00] VITALS: BP 126/60
[2020-12-14 13:34] LABS: PLATELET ESTIMATE NORMAL
[2020-12-14 16:00] VITALS: BP 127/62
[2020-12-14 20:00] VITALS: BP 138/57
[2020-12-14] MEDS: ATORVASTATIN CALCIUM 20MG TABLET PO SCH (22:09)
[2020-12-15] VITALS (8 sets, daily range): BP systolic 124–156; BP diastolic 60–83
[2020-12-15] MEDS: DEXT 5%/LACTATED RINGERS 1,000 ML IV SCH ×3 (00:08→21:29)
[2020-12-15] MEDS: CLONIDINE 0.1MG TABLET PO PRN (05:14)
[2020-12-15] MEDS: CEFAZOLIN 1000MG PREMIX 50 ML IV SCH ×3 (05:15→21:22)
[2020-12-15] MEDS: PANTOPRAZOLE 40MG DR TABLET PO SCH (06:27)
[2020-12-15] MEDS: CALCIUM CARBONATE 500MG TABLET CHEW PO SCH ×3 (09:21→16:48)
[2020-12-15] MEDS: GUAIFENESIN 600MG ER TABLET PO SCH ×2 (09:21→21:22)
[2020-12-15] MEDS: METOPROLOL TARTRATE 25MG TABLET PO SCH ×2 (09:22→21:22)
[2020-12-15] MEDS: LACTOBACILLUS GG CAPSULE PO SCH (09:22)
[2020-12-15] MEDS: AMLODIPINE 10MG TABLET PO SCH (09:26)
[2020-12-15] MEDS: IPRATROPIUM/ALBUTEROL 0.5-3(2.5)MG/3ML NEB HHN SCH (10:05)
[2020-12-15] MEDS ORDERED: IPRATROPIUM/ALBUTEROL 0.5-3(2.5)MG/3ML NEB HHN PRN (10:45)
[2020-12-15] MEDS: ATORVASTATIN CALCIUM 20MG TABLET PO SCH (21:22)
[2020-12-15] MEDS: DIPHENHYDRAMINE 50MG/ML VIAL IV PRN (21:22)
[2020-12-16] VITALS: BP 140/63
[2020-12-16 04:00] VITALS: BP 146/71
[2020-12-16] MEDS: CEFAZOLIN 1000MG PREMIX 50 ML IV SCH ×2 (05:04→14:00)
[2020-12-16] MEDS: PANTOPRAZOLE 40MG DR TABLET PO SCH (05:04)
[2020-12-16 08:00] VITALS: BP 151/67
[2020-12-16 12:00] VITALS: BP 140/67
[2020-12-16] MEDS ORDERED: PANT40TA51 PO (12:37)
[2020-12-16] MEDS ORDERED: METO25TA6 PO (12:37)
[2020-12-16] MEDS: CALCIUM CARBONATE 500MG TABLET CHEW PO SCH ×2 (12:37→14:17)
[2020-12-16] MEDS: LACTOBACILLUS GG CAPSULE PO SCH (12:37)
[2020-12-16] MEDS: METOPROLOL TARTRATE 25MG TABLET PO SCH (12:38)
[2020-12-16] MEDS: GUAIFENESIN 600MG ER TABLET PO SCH (12:39)
[2020-12-16] MEDS: AMLODIPINE 10MG TABLET PO SCH (12:39)
[2020-12-16 13:26] VITALS: BP 140/67
[2020-12-16] MEDS ORDERED: ISOSORBIDE MONONITRATE 30MG TABLET SR 24HR PO SCH (15:00)
== END 2020-12-16 14:53 | DRG 471 ==
LOC: ER 12:20 → MICUSO 15:28 → 7EST 12-04 02:12 → 8WST 12-05 00:39 → 5EST 12-11 18:10 → 6EST 12-13 12:09
PROVIDERS: ADMIT Internal Medicine; ATTEND Internal Medicine
PROC: 0RG20A0 Fusion of 2 or more Cervical Vertebral Joints with Interbody Fusion Device, Anterior Approach, Anterior Column, Open Approach (ICD-10-PCS; principal; 2020-12-11)
PROC: 0RB30ZZ Excision of Cervical Vertebral Disc, Open Approach (ICD-10-PCS; 2020-12-14)
DX: M48.02 Spinal stenosis, cervical region (principal); G82.50 Quadriplegia, unspecified; M47.12 Other spondylosis with myelopathy, cervical region; E87.1 Hypo-osmolality and hyponatremia; N39.0 Urinary tract infection, site not specified; N17.9 Acute kidney failure, unspecified; M50.022 Cervical disc disorder at C5-C6 level with myelopathy; I50.32 Chronic diastolic (congestive) heart failure; M50.023 Cervical disc disorder at C6-C7 level with myelopathy; R55 Syncope and collapse; E86.0 Dehydration; E87.5 Hyperkalemia; R19.7 Diarrhea, unspecified; J44.9 Chronic obstructive pulmonary disease, unspecified; I44.0 Atrioventricular block, first degree; I50.9 Heart failure, unspecified; I11.0 Hypertensive heart disease with heart failure; I25.10 Atherosclerotic heart disease of native coronary artery without angina pectoris; F17.200 Nicotine dependence, unspecified, uncomplicated; F15.10 Other stimulant abuse, uncomplicated; E66.01 Morbid (severe) obesity due to excess calories; J45.909 Unspecified asthma, uncomplicated; D64.9 Anemia, unspecified; E66.09 Other obesity due to excess calories; E78.5 Hyperlipidemia, unspecified; M16.11 Unilateral primary osteoarthritis, right hip; M25.78 Osteophyte, vertebrae; M43.12 Spondylolisthesis, cervical region; M48.061 Spinal stenosis, lumbar region without neurogenic claudication; M50.122 Cervical disc disorder at C5-C6 level with radiculopathy; M50.123 Cervical disc disorder at C6-C7 level with radiculopathy; M51.24 Other intervertebral disc displacement, thoracic region; Z20.822 Contact with and (suspected) exposure to COVID-19; Z79.51 Long term (current) use of inhaled steroids; Z95.5 Presence of coronary angioplasty implant and graft; Z90.49 Acquired absence of other specified parts of digestive tract; Z98.1 Arthrodesis status; Z79.899 Other long term (current) drug therapy; Z68.39 Body mass index [BMI] 39.0-39.9, adult
CPT/HCPCS: 36415; 71045; 72040; 72141; 72146; 72148; 73521; 76000; 80048; 80053; 80061; 80305; 80320; 81003; 82270; 83605; 83880; 84295; 84443; 84484; 85025; 86850; 86900; 87045; 87426; 87493; 88304; 88305; 88311; 89055; 93005; 93306; 93880; 94640; 94644; 95863; 95925; 95926; 95928; 95929; 95940; 97116; 97162; 97164; 97166; 97530; 97535; 99291; C1713; C1893; J0360; J0690; J0692; J0696; J1100; J1170; J1200; J1650; J1815; J1940; J2175; J2270; J2405; J3490; J7030; J7050; J7060; J7121; L0172; P9047; U0003; C1762; G0480

== ENCOUNTER 2022-11-13 04:34 | Emergency (ER) | payer OTHER, MEDICAID ==
[~2022-11-13] VITALS: Ht 170.2 cm; Wt 110.0 kg
[~2022-11-13 04:34] MED LIST changes: +ATOR10TA69 MT; +METO25TA6 PO; +PANT40TA51 PO
[2022-11-13 06:12] LABS: BASOPHILS % 0.8 % (0.0-2.0); EOSINOPHILS % 3.2 % (0.0-5.0); HEMATOCRIT. 40.6 % (36.0-48.0); HEMOGLOBIN. 13.6 g/dL (12.0-16.0); MEAN CORPUSCULAR VOLUME 89.7 fL (81.0-99.0); MONOCYTES % 5.7 % (2.0-8.0); NEUTROPHILS % 78.3 % (40.0-76.0); PLATELET 274 x1000/uL (130-400); RED BLOOD CELL COUNT 4.52 mill/uL (4.2-5.4); RED CELL DISTRIBUTION WIDTH 13.9 % (11.6-14.6)
[2022-11-13 06:17] LABS: PARTIAL THROMBOPLASTIN TIME 29.8 sec (23.4-31.0); PROTHROMBIN TIME 10.3 sec (9.6-11.0)
[2022-11-13] MEDS ORDERED: OXYMETAZOLINE HCL NASAL SPRAY 15ML BOTHNSTRLS SCH (07:30)
[2022-11-13] MEDS ORDERED: TRANEXAMIC ACID 1,000 MG/10 ML IV ONE (08:45)
[2022-11-13 11:49] VITALS: BP 150/99
== END 2022-11-13 11:51 | disposition home or self-care (01) ==
LOC: ER 04:34
DX: R04.0 Epistaxis (principal); I11.9 Hypertensive heart disease without heart failure; J44.9 Chronic obstructive pulmonary disease, unspecified
CPT/HCPCS: 30901; 36415; 85025; 99283